=== PATIENT | female | born 1940 | race Caucasian/White ===

== ENCOUNTER → 2023-01-11 | Outpatient (CLI) | payer MEDICARE, OTHER ==
[~2023-01-11] MED LIST: LISINOPRIL10 MG PO; LYRICA200 MG PO; MELOXICAM7.5 MG PO; PAXIL20 MG PO; PLAVIX75 MG PO; VYTORIN 10-401 EACH PO
== END ==
LOC: RAD 10:51
PROVIDERS: ATTEND Internal Medicine Critical Care Medicine
DX: R06.00 Dyspnea, unspecified (principal)
CPT/HCPCS: 71046

== ENCOUNTER → 2023-07-16 | Day surgery (SDC) | payer MEDICARE, OTHER ==
[2023-07-16] VITALS (14 sets, daily range): BP systolic 105–139; BP diastolic 60–83; PULSE 73–90; RESP 15–23; TEMP 97.5–97.8; O2SAT 92–100
[~2023-07-16] VITALS: Ht 157.5 cm; Wt 67.1 kg
[~2023-07-16] MED LIST changes: +ALPRAZOLAM 0.5 MG TAB ONE; +BIVALRIUDIN 250 MG/VIAL VIAL IV ONE; +DIPHENHYDRAMINE HCL 25 MG CAP ONE; +FENTANYL CITRATE/PF 100MCG/2 ML INJ ONE; +FISH OIL 1,0001 EAC7; +HEPARIN SOD (PORCINE) 1000 UNIT/ML 30ML ONE; +HEPARIN SOD/SOD CHLORIDE 2,000 ML ONE; +IOPAMIDOL 370 MG/ML 100 ML INFUS..BTL INJ ONE; +LIDOCAINE HCL 2% LOCAL 20 ML VIAL ONE; +LISINOPRIL5 MG PO; +MIDAZOLAM HCL 2 MG/2 ML VIAL ONE; +NITROGLYCERIN/D5W 200 MCG/ML 250 ML ONE; +SODIUM CHLORIDE 0.9% 1000ML 1,000 ML ONE; +VERAPAMIL HCL 2.5 MG/ML 2 ML VIAL ONE
== END | disposition home or self-care (01) ==
LOC: CATH LAB 10:32
PROVIDERS: ATTEND Internal Medicine Interventional Cardiology
DX: I25.118 Atherosclerotic heart disease of native coronary artery with other forms of angina pectoris (principal); R93.1 Abnormal findings on diagnostic imaging of heart and coronary circulation; I10 Essential (primary) hypertension; E78.2 Mixed hyperlipidemia; Z88.6 Allergy status to analgesic agent; Z79.02 Long term (current) use of antithrombotics/antiplatelets; Z79.82 Long term (current) use of aspirin; Z79.1 Long term (current) use of non-steroidal anti-inflammatories (NSAID); Z79.899 Other long term (current) drug therapy; Z87.891 Personal history of nicotine dependence
CPT/HCPCS: 93454; C1887; C1894; J2001; J2250; J3010; J7030; Q9967; 99152; J0583; J1644

== ENCOUNTER 2024-04-10 16:54 | Emergency (ER) | payer MEDICARE, OTHER ==
[~2024-04-10] VITALS: Ht 157.5 cm; Wt 67.1 kg
[~2024-04-10 16:54] MED LIST changes: -ALPRAZOLAM 0.5 MG TAB ONE; -BIVALRIUDIN 250 MG/VIAL VIAL IV ONE; +CEFPODOXIME PR200 MG PO; -DIPHENHYDRAMINE HCL 25 MG CAP ONE; -FENTANYL CITRATE/PF 100MCG/2 ML INJ ONE; -HEPARIN SOD (PORCINE) 1000 UNIT/ML 30ML ONE; -HEPARIN SOD/SOD CHLORIDE 2,000 ML ONE; -IOPAMIDOL 370 MG/ML 100 ML INFUS..BTL INJ ONE; -LIDOCAINE HCL 2% LOCAL 20 ML VIAL ONE; -MIDAZOLAM HCL 2 MG/2 ML VIAL ONE; -NITROGLYCERIN/D5W 200 MCG/ML 250 ML ONE; -SODIUM CHLORIDE 0.9% 1000ML 1,000 ML ONE; -VERAPAMIL HCL 2.5 MG/ML 2 ML VIAL ONE
[2024-04-10 16:58] VITALS: TEMP 98.9
[2024-04-10 17:41] LABS: BASOPHILS % 0.5 % (0.0-1.0); EOSINOPHILS # (AUTO) 0.1 (0.0-0.4); EOSINOPHILS % 0.8 % (0.0-6.0); HEMATOCRIT 34.7 % (34.2-44.1); HEMOGLOBIN 11.3 g/dL (12.0-16.0); LYMPHOCYTES # (AUTO) 1.5 (1.0-3.2); LYMPHOCYTES % 24.6 % (18.0-39.1); MEAN CORPUSCULAR HEMOGLOBIN 30.7 pg (28-32); MEAN CORPUSCULAR HGB CONC 32.6 g/dL (31-35); MEAN CORPUSCULAR VOLUME 94.3 fL (81-99); MONOCYTES # (AUTO) 0.5 (0.2-0.8); MONOCYTES % 8.3 % (4.4-11.3); NEUTROPHILS # (AUTO) 3.9 (2.1-6.9); NEUTROPHILS % 65.6 % (38.7-80.0); PLATELET COUNT 126 x10e3/uL (140-360); RED BLOOD COUNT 3.68 x10e6/uL (3.6-5.1); RED CELL DISTRIBUTION WIDTH 13.1 % (11.7-14.4); WHITE BLOOD COUNT 6.01 x10e3/uL (4.8-10.8)
[2024-04-10 17:49] LABS: INR 0.91; PROTHROMBIN TIME 12.7 seconds (11.9-14.5)
[2024-04-10 17:50] LABS: PARTIAL THROMBOPLASTIN TIME 25.8 seconds (23.8-35.5)
[2024-04-10 17:57] LABS: BILIRUBIN,URINE NEGATIVE (NEGATIVE); CLARITY,URINE CLEAR (CLEAR); COLOR,URINE YELLOW (YELLOW); GLUCOSE, URINE NEGATIVE (NEGATIVE); KETONES,URINE NEGATIVE (NEGATIVE); LEUKOCYTE ESTERASE ,URINE NEGATIVE (NEGATIVE); NITRITE,URINE NEGATIVE (NEGATIVE); PH,URINE 7.5 (5 - 7); PROTEIN,URINE DIPSTICK NEGATIVE (NEGATIVE); URINE UROBILINOGEN 0.2 mg/dL (0.2 - 1)
[2024-04-10 18:01] LABS: BACTERIA,URINE MANY /HPF; RBC,URINE 0-5 /HPF (0-5); WBC,URINE (MAN) 0-5 /HPF (0-5)
[2024-04-10 18:02] LABS: EPITHELIAL CELLS,URINE MODERATE /LPF
[2024-04-10 18:03] LABS: ALANINE AMINOTRANSFERASE 11 IU/L (0-55); ALBUMIN 3.8 g/dL (3.5-5.0); ALBUMIN/GLOBULIN RATIO 1.3 (0.8-2.0); ALKALINE PHOSPHATASE 91 IU/L (40-150); ANION GAP 15.2 mmol/L (8-16); BILIRUBIN,TOTAL 0.4 mg/dL (0.2-1.2); BLOOD UREA NITROGEN 16 mg/dL (7-26); BUN/CREATININE RATIO 19 (6-25); CALCIUM 8.6 mg/dL (8.4-10.2); CARBON DIOXIDE 23 mmol/L (22-29); CHLORIDE 103 mmol/L (98-107); CREATINE KINASE 61 IU/L (29-168); CREATININE, SERUM 0.83 mg/dL (0.57-1.11); EST GLOMERULAR FILTRATION RATE 69 ML/MIN (>=60); GLUCOSE 114 mg/dL (74-118); POTASSIUM 4.2 mmol/L (3.5-5.1); SODIUM 137 mmol/L (136-145); TOTAL PROTEIN 6.8 g/dL (6.5-8.1)
[2024-04-10 18:11] LABS: TROPONIN I < 0.05 ng/mL (0.0-0.40)
[2024-04-10] MEDS ORDERED: IOPAMIDOL 370 MG/ML 100 ML INFUS..BTL INJ ONE (18:14)
[2024-04-10 18:54] VITALS: PULSE 76; RESP 18
[2024-04-10] MEDS ORDERED: METHOCARBAMOL750 MG PO (20:52)
[2024-04-10 22:50] VITALS: BP 149/76; PULSE 73; RESP 17; TEMP 98.6; O2SAT 98
== END 2024-04-10 20:57 | disposition home or self-care (01) ==
LOC: ER 17:03
DX: M54.50 Low back pain, unspecified (principal); G89.29 Other chronic pain; I25.10 Atherosclerotic heart disease of native coronary artery without angina pectoris; E78.5 Hyperlipidemia, unspecified; I73.9 Peripheral vascular disease, unspecified; G62.9 Polyneuropathy, unspecified; F32.A Depression, unspecified; Z11.52 Encounter for screening for COVID-19
CPT/HCPCS: 36415; 74177; 80053; 81001; 82550; 83735; 84484; 85025; 85610; 85730; 99283; Q9967; U0002

== ENCOUNTER 2024-05-18 13:07 | Emergency (ER) | payer MEDICARE, OTHER ==
[~2024-05-18] VITALS: Ht 157.5 cm; Wt 58.5 kg
[~2024-05-18 13:07] MED LIST changes: +METHOCARBAMOL750 MG PO
[2024-05-18 13:31] VITALS: PULSE 94; RESP 18; TEMP 97.8
[2024-05-18] MEDS ORDERED: POTASSIUM CHLORIDE 10MEQ EA PO ONE (14:45)
[2024-05-18] MEDS: POTASSIUM CHLORIDE 20 MEQ TAB CR PO STA (15:32)
[2024-05-18] MEDS ORDERED: CEPHALEXIN500 MG PO (15:37)
[2024-05-18 16:00] VITALS: BP 155/74; PULSE 81; RESP 18; O2SAT 96
[2024-05-18] MEDS: CEPHALEXIN MONOHYDRATE 250 MG CAP PO ONE (16:00)
== END 2024-05-18 16:00 | disposition home or self-care (01) ==
LOC: FSED 13:29
DX: M25.531 Pain in right wrist (principal); L03.113 Cellulitis of right upper limb; M19.031 Primary osteoarthritis, right wrist; E87.6 Hypokalemia; I10 Essential (primary) hypertension; M06.9 Rheumatoid arthritis, unspecified; M54.9 Dorsalgia, unspecified; G89.29 Other chronic pain
CPT/HCPCS: 80053; 85025; 99283